=== PATIENT | male | born 1970 | race Hispanic/Latino ===

== ENCOUNTER → 2019-08-24 | Day surgery (SDC) | payer SELFPAY ==
[~2019-08-24] MED LIST: Adacel (T-DAP) 0.5 ML SYRINGE ONE; Bupivacaine PF 0.5% 30 ML VIAL ONE; Dexamethasone 20 MG/5 ML VIAL ONE; EPHEDRINE 25 MG/5 ML SYRINGE ONE; Fentanyl 100 MCG/2 ML VIAL ONE; HYDROcodone/Acetaminophen 5/325 mg Tablet ONE; Lidocaine 1% PF 5 ML VIAL ONE; Lidocaine 1% w/Epinephrine 1:100K 20 ML VIAL ONE; Neomycin-Polymyxin 1 ML AMP ONE; Ondansetron HCl/PF 4 MG/2 ML Vial IVP PRN; Ondansetron PF 4 MG/2 ML Vial ONE; PHENYLEPHRINE-NS 100 MCG/ML 10 ML SYRINGE ONE; PROPOFOL 200 MG/20 ML VIAL ONE; Promethazine HCl 25 MG/ML VIAL IM PRN; Promethazine HCl 25 MG/ML VIAL SLOW IVP PRN; Succinylcholine Chloride 20 MG/ML 10 ml SYRINGE FS ONE
[2019-08-24 16:09] LABS: #Basophils 0.1 thou/uL (0.0-0.2); #Eosinphils 0.1 thou/uL (0.0-0.7); #Lymphocytes 3.3 thou/uL (1.20-3.40); #Monocytes 0.4 thou/uL (0.11-0.59); #Neutrophils 2.8 thou/uL (1.40-6.50); %Basophils 1.5 % (0.0-1.0); %Eosinophils 1.9 % (0.0-10.0); %Lymphocytes 49.1 % (21.0-51.0); %Monocytes 5.9 % (0.0-10.0); %Neutrophils 41.8 % (42.0-75.0); Hemoglobin 14.8 g/dL (14.0-18.0); Mean Corpuscular HGB CONC 34.3 g/dL (32.0-36.0); Mean Corpuscular Hemoglobin 28.8 pg (27.0-31.0); Mean Corpuscular Volume 83.9 fL (78.0-98.0); Mean Platelet Volume 8.3 fL (7.4-10.4); Platelet Count 176 thou/uL (130-400); RBC Distribution Width 12.3 % (11.5-14.5); Red Blood Cell (RBC) Count 5.12 mill/uL (4.70-6.10); White Blood Cell (WBC) Count 6.8 thou/uL (4.8-10.8)
--- NOTE | 2019-08-24 16:22 | RAD ---
2 views right forearm: 08/24/2019 COMPARISON: None HISTORY: Arm laceration FINDINGS: Extensive soft tissue irregularity is seen involving the distal aspect of the forearm, cons istent with the patient's history of laceration. There are questionable tiny punctate foreign bodies associated with the soft tissues along the dorsal aspect of the distal forearm measuring up to approximately 1-2 mm. These are seen on the lateral examination adjacent to the dorsal cortex of the distal right ulnar shaft. No displaced fracture or dislocation. IMPRESSION: Soft tissue laceration. No associated fracture or dislocation. Questionable tiny foreign bodies within the soft tissues as detailed above.
[2019-08-24 16:30] LABS: Alcohol 321 mg/dL (Less than 10); Anion Gap 16 mmol/L (10-20); BUN (Urea Nitrogen) 11 mg/dL (8.9-20.6); Calc. Creatinine Clearance 0 mL/min (70-130); Calcium 8.2 mg/dL (7.8-10.44); Carbon Dioxide 19 mmol/L (22-29); Chloride 110 mmol/L (98-107); Estimated GFR-MDRD Greater than 90; Glucose 111 mg/dL (70-105); Sodium 141 mmol/L (136-145)
--- NOTE | 2019-08-24 19:51 | OP ---
DATE OF PROCEDURE: 08/24/2019 PREOPERATIVE DIAGNOSIS: Laceration on the volar and ulnar aspect of the distal left forearm and wrist. POSTOPERATIVE DIAGNOSES: Laceration on the volar and ulnar aspect of the distal left forearm and wrist with lacerations of the flexor digitorum profundus to the 4th and 5th digits, flexor carpi ulnaris, flexor digitorum sublimis to the 3rd, 4th, and 5th digits, and extensor carpi ulnaris, laceration of the motor and sensory branches of the ulnar nerve and 27 cm laceration. PROCEDURE PERFORMED: 1. Irrigation and debridement of the right forearm using Pulsavac. 2. Repair of tendons at the forearm and wrist level including the flexor digitorum profundus to the 4th and 5th digits, flexor carpi ulnaris, flexor digitorum sublimis to the 3rd, 4th and 5th digits, extensor carpi ulnaris, and repair of the motor and sensory branches of the ulnar nerve and repair of 27 cm laceration. ANESTHESIA: General. TECHNIQUE: The patient was seen initially in the emergency room. He had a pulsatile bleeder in the area of the ulnar nerve. A tourniquet was applied to the right arm and a compression dressing was applied. The patient was brought to the operating room, where the tourniquet that was applied in the emergency room was released and operating room tourniquet was applied. This tourniquet was raised to 250 mmHg. The compression dressing was removed and the right upper extremity was sterilely prepped and draped in usual fashion. The ulnar artery was located, tied off using 2-0 Vicryl. The proximal portion of the ulnar artery that was cut, was also tied off with 2-0 Vicryl. The wound was copiously irrigated using antibiotic solution using the high-speed alignment mechanic. The tendons that were cut, were identified and repaired using #2 FiberWire and these include the flexor digitorum profundus to the 4th and 5th digits, the flexor digitorum sublimis to the 3rd, 4th, and 5th digits, the flexor carpi ulnaris tendon and the extensor carpi ulnaris tendon. The ulnar nerve was identified proximally and it was cut approximately 1 cm distal, where it bifurcated from the motor and sensory branches, and both of those were located and were repaired using 4-0 Prolene. Both the motor branch and the sensory branch were repaired. The wound again was irrigated and the 27 cm laceration was repaired using 2-0 Vicryl for the fat and subcutaneous tissue level, and the skin was closed with 3-0 Rapide. The laceration was then infiltrated with a total of 30 mL of 0.25% Marcaine with epinephrine and lidocaine. A bulky dressing was applied over the forearm, wrist, and hand, and the 4-inch ORTHO-GLASS was used placing the wrist in slight flexion and the digits also in flexion at the MP, PIP, and DIP joints. The tourniquet was released prior to closure and good hemostasis was obtained. There was no active drainage after the wound was completely closed. After the dressing was applied, the patient was awakened, extubated, and transferred to recovery room in stable condition. ESTIMATED BLOOD LOSS: 50 mL. COMPLICATIONS: None. TOURNIQUET TIME: 70 minutes. DISCHARGE MEDICATIONS: 1. Tylenol No. 4 one every 6 hours as needed for pain, #40. 2. Augmentin 875 mg twice a day, #14. FOLLOWUP: Follow up in my office in 8 days. Job ID: [id number]
--- NOTE | 2019-08-30 09:27 | EKG ---
Test Reason : Blood Pressure : / mmHG Vent. Rate : 090 BPM Atrial Rate : 090 BPM P-R Int : 150 ms QRS Dur : 084 ms QT Int : 318 ms P-R-T Axes : 020 -12 -19 degrees QTc Int : 389 ms Normal sinus rhythm Nonspecific T wave abnormality Abnormal ECG Confirmed by BRITTNEE SHORT, TIMOTEO Perez ([id number]), assistant film editor MADI LARSON ([id number]) on 08/30/2019 9:27:34 AM Referred By: Confirmed By:TIMOTEO BEAULIEU MD
== END ==
LOC: ERS 15:48 → SDC/OP 16:30
PROVIDERS: ATTEND Neurological Surgery
PROC: 0LQ60ZZ Repair Left Lower Arm and Wrist Tendon, Open Approach (ICD-10-PCS; principal; 2019-08-24)
PROC: 01Q40ZZ Repair Ulnar Nerve, Open Approach (ICD-10-PCS; principal; 2019-08-24)
DX: S56.124A Laceration of flexor muscle, fascia and tendon of left middle finger at forearm level, initial encounter (principal); S56.126A Laceration of flexor muscle, fascia and tendon of left ring finger at forearm level, initial encounter; S56.128A Laceration of flexor muscle, fascia and tendon of left little finger at forearm level, initial encounter; S56.522A Laceration of other extensor muscle, fascia and tendon at forearm level, left arm, initial encounter; S54.02XA Injury of ulnar nerve at forearm level, left arm, initial encounter; S51.812A Laceration without foreign body of left forearm, initial encounter; W25.XXXA Contact with sharp glass, initial encounter; W22.8XXA Striking against or struck by other objects, initial encounter
CPT/HCPCS: 80048; 80307; 85025; 90715; 93005; J0690; J1100; J2001; J2405; J2704; J3010; J3490; S0020

== ENCOUNTER 2023-07-15 13:30 | Emergency (ER) | payer SELFPAY ==
[2023-07-15] MEDS ORDERED: Lidocaine/Transparent Dressing 1 EACH KIT ONE (13:39)
[2023-07-15] MEDS ORDERED: Boostrix 0.5 ML (Tdap) VIAL (>/=7 yrs of age) ONE (13:43)
[2023-07-15] MEDS ORDERED: Bupivacaine 0.5% 10 ML VIAL ONE (13:43)
[2023-07-15 14:33] LABS: #Eosinphils 0.1 thou/uL (0.0-0.7); #Monocytes 0.4 thou/uL (0.11-0.59); #Neutrophils 1.8 thou/uL (1.40-6.50); %Basophils 0.6 % (0.0-1.0); %Eosinophils 2.5 % (0.0-10.0); %Lymphocytes 51.2 % (21.0-51.0); %Monocytes 7.9 % (0.0-10.0); %Neutrophils 37.4 % (42.0-75.0); Hematocrit 44.2 % (42.0-52.0); Hemoglobin 14.3 g/dL (14.0-18.0); Mean Corpuscular HGB CONC 32.4 g/dL (32.0-36.0); Mean Corpuscular Hemoglobin 28.3 pg (27.0-31.0); Mean Corpuscular Volume 87.5 fl (78.0-98.0); Platelet Count 146 10x3/uL (130-400); RBC Distribution Width 14.4 % (11.5-14.5); Red Blood Cell (RBC) Count 5.05 mill/uL (4.70-6.10); White Blood Cell (WBC) Count 4.8 10x3/uL (4.8-10.8)
[2023-07-15 14:51] LABS: ALT (SGPT) 133 U/L (8-55); AST (SGOT) 122 U/L (5-34); Acetaminophen Less than 10 mcg/mL (10.0-30.0); Albumin 4.2 g/dL (3.5-5.0); Alcohol 370.6 mg/dL (Less than 10); Alkaline Phosphatase 72 U/L (40-110); Anion Gap 14 mmol/L (10-20); BUN (Urea Nitrogen) 4 mg/dL (8.4-25.7); Bilirubin, Total 0.3 mg/dL (0.2-1.2); Calc. Creatinine Clearance 0 mL/min (70-130); Calcium 8.3 mg/dL (7.8-10.44); Carbon Dioxide 21 mmol/L (22-29); Chloride 115 mmol/L (98-107); Estimated GFR 112; Globulin 2.8 g/dL (2.4-3.5); Glucose 104 mg/dL (70-105); Potassium 3.6 mmol/L (3.5-5.1); Salicylate Less than 8.0 mg/dL (15.0-30.0); Sodium 146 mmol/L (136-145)
== END 2023-07-15 15:08 | disposition home or self-care (01) ==
LOC: ERS 13:30
DX: S01.01XA Laceration without foreign body of scalp, initial encounter (principal); F10.129 Alcohol abuse with intoxication, unspecified; Y90.9 Presence of alcohol in blood, level not specified; W10.1XXA Fall (on)(from) sidewalk curb, initial encounter; Z23 Encounter for immunization
CPT/HCPCS: 36415; 70450; 72125; 80053; 80307; 85025; 90471; 90715; 93005; J3490